=== PATIENT | female | born 1965 | race Caucasian/White ===

== ENCOUNTER 2023-10-05 09:43 | Outpatient (CLI) | payer OTHER, SELFPAY ==
--- NOTE | ~2023-10-05 | XR_ITS ---
XR knee RT 3V DATE: 10/05/2023 10:04 INDICATION: Chronic anterior knee pain TECHNIQUE: Standing AP and lateral views, sunrise view COMPARISON: None FINDINGS: There is mild patellar periarticular spurring. Small suprapatellar knee joint effusion is suggested. Mild loss of height of medial compartment joint space. No radiopaque intra-articular loose body or ch ondrocalcinosis. No fracture, dislocation, periosteal reaction or bone destruction. IMPRESSION: Mild loss of height of medial compartment joint space, mild patellar periarticular spurri ng Small knee joint effusion is suggested Reviewed, dictated and finalized at location A. [employer] IMPRESSION: Mild loss of height of medial compartment joint space, mild patella r periarticular spurring Small knee joint effusion is suggested
== END 2023-10-05 09:44 | disposition home or self-care (01) ==
LOC: ANHIMG 09:46
PROVIDERS: PCP Nurse Practitioner Family; Visit Provider Nurse Practitioner Family
DX: M23.8X1 Other internal derangements of right knee (principal); M24.151 Other articular cartilage disorders, right hip
CPT/HCPCS: 73562

== ENCOUNTER 2024-05-01 08:29 | Outpatient (CLI) | payer OTHER, SELFPAY ==
--- NOTE | ~2024-05-01 | MM_ITS ---
EXAMINATION: MM screening [place] BI w araceli HISTORY: Screening TECHNIQUE: Craniocaudal and mediolateral oblique 3-D tomosynthesis images were obtained and synthetic 2-D images were generated. CAD analysis was submitted and interpreted. COMPARISON: Comparison to multiple prior studies sequentially, with oldest reviewed study dated 11/02. BREAST PARENCHYMAL COMPOSITION: There are scattered areas of fibroglandular density. FINDINGS: There is no evidence of suspicious mass, calcification, or architectural distortion to sugg est malignancy in either breast. There has been no suspicious interval change. IMPRESSION: 1. No mammographic evidence of malignancy. 2. Recommend routine screening mammography in one year. BI-RADS Category 1: Negative Reviewed, dictated and finalized at location B.
== END 2024-05-01 08:30 | disposition home or self-care (01) ==
PROVIDERS: PCP Nurse Practitioner Family; Visit Provider Nurse Practitioner Family
DX: Z12.31 Encounter for screening mammogram for malignant neoplasm of breast (principal)
CPT/HCPCS: 77063; 77067